=== PATIENT | male | born 1985 | race Caucasian/White ===

== ENCOUNTER 2018-07-16 20:17 | Emergency (ER) | payer MEDICAID ==
[2018-07-16 20:36] VITALS: BP 126/67
--- NOTE | 2018-07-16 21:26 | ED Physician Documentation ---
PD HPI LOWER EXT INJURY - Stated complaint Stated Complaint: BILAT LEG PX - Chief complaint Chief Complaint: Ext Problem - History obtained from History obtained from: Patient, Family - History of Present Illness PD HPI LOW EXT INJURY LOCATION: Both, Upper leg Type of injury: Other Where injury occurred: Home Timing - onset: Today Timing - details: Abrupt onset, Still present Similar symptoms before: Has not had sx before Recently seen: Not recently seen - Additional information Additional information: Patient is a 33 year old male who is presenting to the emergency department for bilateral leg pain. patient states that he was trying to race his son when he felt both of his hamstrings pull. Patient states that is he physically active but he has not sprinted in a long time. Review of Systems Ten Systems: 10 systems reviewed and negative Musculoskeletal: reports: Extremity pain PD PAST MEDICAL HISTORY - Present Medications Home Medications: Ambulatory Orders Medication Instructions Recorded Confirmed No Known Home Medications [No 07/16/18 07/16/18 Known Home Medications] - Allergies Allergies/Adverse Reactions: Allergies Allergy/AdvReac Type Severity Reaction Status Date / Time No Known Drug Allergies Allergy Verified 07/16/18 20:36 PD ED PE NORMAL - Vitals Vital signs reviewed: Yes - General General: Alert and oriented X 3 - HEENT HEENT: Atraumatic - Cardiac Cardiac: RRR - Respiratory Respiratory: No respiratory distress - Abdomen Abdomen: Non distended - Derm Derm: Normal color, Warm and dry PD ED PE EXPANDED - Extremities Extremities: Right thigh, Left thigh (tenderness to palpation and pain with weight bearing of bilateral posterior thighs) Results - Vitals Vitals: Vital Signs - 24 hr 07/16/18 20:33 Temperature 37.2 C Heart Rate 64 Respiratory 16 Rate Blood Pressure 126/67 O2 Saturation 99 Oxygen O2 Source Room air PD MEDICAL DECISION MAKING - ED course Complexity details: reviewed old records, reviewed results, re-evaluated patient , considered differential, d/w patient, d/w family ED course: Patient was seen and examined at bedside. Patient had no bony abnormalities. x -rays would not be helpful at this juncture. Patient was given shaye bandages and ice. Patient reported that he would take motrin and tylenol at home. patient required no further work up at this time and was stable for discharge with outpatient follow up. - Sepsis Event Vital Signs: Vital Signs - 24 hr 07/16/18 20:33 Temperature 37.2 C Heart Rate 64 Respiratory 16 Rate Blood Pressure 126/67 O2 Saturation 99 Oxygen O2 Source Room air Departure - Departure Disposition: 01 Home, Self Care Clinical Impression: Muscle tear Condition: Good Instructions: ED Strain Muscle Ext Follow-Up: Ayden Martinez MD [Provider Admit Priv/Credential] - Within 3 Days Comments: Your symptoms today are likely being caused by a hamstring pull/tear. You will need to alternate between ice and heat on the area at least 4 times a day. You should take motrin 600mg and tylenol 1000mg as needed for pain. You can expect to see some bruising over the next few days. You should follow up with Dr. Martinez' s office or your primary care physician for further evaluation and care.
== END 2018-07-16 21:37 | disposition home or self-care (01) ==
LOC: ED 20:17
DX: S76.319A Strain of muscle, fascia and tendon of the posterior muscle group at thigh level, unspecified thigh, initial encounter (principal); X50.9XXA Other and unspecified overexertion or strenuous movements or postures, initial encounter; Y93.02 Activity, running; Y92.009 Unspecified place in unspecified non-institutional (private) residence as the place of occurrence of the external cause
CPT/HCPCS: 99282; 99283